=== PATIENT | female | born 1970 | race Caucasian/White ===

== ENCOUNTER 2023-05-31 08:32 | Outpatient (RCR) | payer BC, SELFPAY | END 2023-05-31 23:59 | disposition home or self-care (01) | LOC: ROT 08:32 | PROVIDERS: ATTENDING PHYSICIAN Orthopaedic Surgery | DX: M79.642 Pain in left hand (principal); Z73.6 Limitation of activities due to disability | CPT/HCPCS: 97140; 97166; 97535 ==

== ENCOUNTER 2023-06-05 12:02 | Outpatient (RCR) | payer BC, SELFPAY | END 2023-06-05 23:59 | disposition home or self-care (01) | LOC: RPT 12:02 | PROVIDERS: ATTENDING PHYSICIAN Radiology Radiation Oncology; PRIMARYCARE PHYSICIAN Family Medicine | DX: I97.2 Postmastectomy lymphedema syndrome (principal); C50.412 Malignant neoplasm of upper-outer quadrant of left female breast; Z73.6 Limitation of activities due to disability | CPT/HCPCS: 97110; 97140 ==

== ENCOUNTER 2023-06-14 12:05 | Outpatient (RCR) | payer BC, SELFPAY | END 2023-06-14 23:59 | disposition home or self-care (01) | LOC: ROT 12:05 | PROVIDERS: ATTENDING PHYSICIAN Orthopaedic Surgery | DX: M79.642 Pain in left hand (principal); Z73.6 Limitation of activities due to disability | CPT/HCPCS: 97530 ==

== ENCOUNTER 2023-07-03 12:05 | Outpatient (RCR) | payer BC, SELFPAY | END 2023-07-03 23:59 | disposition home or self-care (01) | LOC: RPT 12:05 | PROVIDERS: ATTENDING PHYSICIAN Radiology Radiation Oncology; PRIMARYCARE PHYSICIAN Family Medicine | DX: I97.2 Postmastectomy lymphedema syndrome (principal); Z73.6 Limitation of activities due to disability; C50.412 Malignant neoplasm of upper-outer quadrant of left female breast; M79.642 Pain in left hand | CPT/HCPCS: 97110; 97140 ==

== ENCOUNTER 2023-08-02 12:13 | Outpatient (RCR) | payer BC, SELFPAY | END 2023-08-02 23:59 | disposition home or self-care (01) | LOC: RPT 12:13 | PROVIDERS: ATTENDING PHYSICIAN Radiology Radiation Oncology; PRIMARYCARE PHYSICIAN Family Medicine | DX: C50.412 Malignant neoplasm of upper-outer quadrant of left female breast (principal); Z73.6 Limitation of activities due to disability | CPT/HCPCS: 97140 ==

== ENCOUNTER 2023-09-04 15:01 | Outpatient (RCR) | payer BC, SELFPAY | END 2023-09-05 14:22 | disposition home or self-care (01) | LOC: RPT 15:01 | PROVIDERS: ATTENDING PHYSICIAN Radiology Radiation Oncology; PRIMARYCARE PHYSICIAN Family Medicine | DX: I89.0 Lymphedema, not elsewhere classified (principal); C50.412 Malignant neoplasm of upper-outer quadrant of left female breast | CPT/HCPCS: 97140 ==

== ENCOUNTER 2023-09-20 14:23 | Outpatient (RCR) | payer BC, SELFPAY | END 2023-09-20 23:59 | disposition home or self-care (01) | LOC: RPT 14:23 | PROVIDERS: ATTENDING PHYSICIAN Radiology Radiation Oncology; PRIMARYCARE PHYSICIAN Family Medicine | DX: I89.0 Lymphedema, not elsewhere classified (principal); C50.412 Malignant neoplasm of upper-outer quadrant of left female breast; Z73.6 Limitation of activities due to disability | CPT/HCPCS: 97140 ==

== ENCOUNTER 2023-10-30 12:04 | Outpatient (RCR) | payer BC, SELFPAY | END 2023-10-30 23:59 | disposition home or self-care (01) | LOC: RPT 12:04 | PROVIDERS: ATTENDING PHYSICIAN Radiology Radiation Oncology; PRIMARYCARE PHYSICIAN Family Medicine | DX: I97.2 Postmastectomy lymphedema syndrome (principal); C50.412 Malignant neoplasm of upper-outer quadrant of left female breast; Z73.6 Limitation of activities due to disability | CPT/HCPCS: 97140 ==

== ENCOUNTER → 2023-12-26 15:49 | Outpatient (REF) | payer BC, SELFPAY | LOC: RCS 15:49 | PROVIDERS: ATTENDING PHYSICIAN Internal Medicine Cardiovascular Disease; FAMILY PHYSICIAN Family Medicine | DX: Z85.3 Personal history of malignant neoplasm of breast (principal); Z92.3 Personal history of irradiation | CPT/HCPCS: 93306; 93356 ==

== ENCOUNTER 2024-01-01 13:59 | Outpatient (RCR) | payer BC, SELFPAY | END 2024-01-01 23:59 | disposition home or self-care (01) | LOC: RPT 13:59 | PROVIDERS: ATTENDING PHYSICIAN Radiology Radiation Oncology; PRIMARYCARE PHYSICIAN Family Medicine | DX: I97.2 Postmastectomy lymphedema syndrome (principal); C50.412 Malignant neoplasm of upper-outer quadrant of left female breast; Z73.6 Limitation of activities due to disability | CPT/HCPCS: 97110; 97140 ==

== ENCOUNTER 2024-01-23 14:07 | Outpatient (RCR) | payer BC, SELFPAY | END 2024-01-23 23:59 | disposition home or self-care (01) | LOC: RPT 14:07 | PROVIDERS: ATTENDING PHYSICIAN Radiology Radiation Oncology; PRIMARYCARE PHYSICIAN Family Medicine | DX: I97.2 Postmastectomy lymphedema syndrome (principal); C50.412 Malignant neoplasm of upper-outer quadrant of left female breast; Z73.6 Limitation of activities due to disability | CPT/HCPCS: 97110; 97140 ==

== ENCOUNTER 2024-02-09 15:02 | Outpatient (RCR) | payer BC, SELFPAY | END 2024-02-09 23:59 | disposition home or self-care (01) | LOC: RPT 15:02 | PROVIDERS: ATTENDING PHYSICIAN Radiology Radiation Oncology; PRIMARYCARE PHYSICIAN Family Medicine | DX: I97.2 Postmastectomy lymphedema syndrome (principal); C50.412 Malignant neoplasm of upper-outer quadrant of left female breast; Z73.6 Limitation of activities due to disability | CPT/HCPCS: 97110; 97140; 97530 ==

== ENCOUNTER 2024-06-06 16:59 | Outpatient (RCR) | payer BC, SELFPAY | END 2024-06-06 23:59 | disposition home or self-care (01) | LOC: RPT 16:59 | PROVIDERS: ATTENDING PHYSICIAN Radiology Radiation Oncology; PRIMARYCARE PHYSICIAN Family Medicine | DX: I97.2 Postmastectomy lymphedema syndrome (principal); C50.412 Malignant neoplasm of upper-outer quadrant of left female breast; Z73.6 Limitation of activities due to disability | CPT/HCPCS: 97110; 97140 ==

== ENCOUNTER 2024-06-20 16:26 | Emergency (ER) | payer BC, SELFPAY ==
[2024-06-20 16:38] VITALS: BP 108/69
[2024-06-20 17:21] LABS: COVID-19 Antigen Negative (Negative)
[2024-06-20 17:22] LABS: ALT (SGPT) 57 U/L (0-35); AST (SGOT) 51 U/L (14-36); Albumin 4.5 g/dl (3.5-5.0); Alkaline Phosphatase 107 U/L (38-126); Blood Urea Nitrogen 10 mg/dl (7-17); Calcium 8.8 mg/dl (8.4-10.2); Carbon Dioxide 23 mmol/L (22-30); Chloride 101 mmol/L (98-107); Glucose 96 mg/dl (70-99); Potassium 4.1 mmol/L (3.5-5.1); Sodium 135 mmol/L (135-145); Total Bilirubin 1.1 mg/dl (0.2-1.3); Total Protein 6.7 g/dl (6.3-8.2); eGFR > 60.00
[2024-06-20 17:28] VITALS: BMI 32.4
--- NOTE | 2024-06-20 17:48 | ED.GENMED ---
History of Present Illness
General
Chief Complaint: Cold/Flu/URI Symptoms
Time Seen by Provider: 06/20/24 17:48
History of Present Illness
History of Present Illness:
TIME OF INITIAL ENCOUNTER: 5:55 PM
HPI: Patient presents due to fevers, cough, congestion and is on Verzenio due to breast cancer. She also reports lower extremity myalgias. She did not take anything for the fever. Her primary oncologist is at [place]. She has been having chills.
EXAM:
GENERAL: The patient appears somewhat weak but is mentating well
HEENT: Moist oral mucosa
CARDIOVASCULAR: No murmurs, borderline tachycardic heart rate, regular rhythm, No chest wall tenderness
PULMONARY: No respiratory distress, breath sounds are clear and equal
ABDOMEN: Soft with no peritoneal signs, no tenderness
NEUROLOGIC: Good strength all extremities, no coordination deficits
PSYCHIATRIC: Appropriate mental status, normal insight and judgement
EXTREMITIES: Nontender, no edema, moves all extremities equally
SKIN: No rash, no lesions
NUMBER AND COMPLEXITY OF PROBLEMS ADDRESSED AT THE ENCOUNTER
� Chronic conditions affecting care: Breast cancer, had neutropenic fever in 2022, thyroid disease
� Acute Exacerbation and/or Progression of Chronic Illness: This is an acute problem
� Differential Diagnosis includes: Viral syndrome, flu, COVID, sepsis, pneumonia, neutropenic fever
AMOUNT AND/OR COMPLEXITY OF DATA TO BE REVIEWED AND ANALYZED
� I performed an independent evaluation of and my interpretation is:
EKG:
CT:
X-rays: Chest x-ray by my read shows no acute abnormality
Laboratory Studies: Flu positive, COVID-negative, creatinine 1.1, AST and ALT in the 50s, white count 2.0, 68% neutrophils
Other:
� Review of other/old records: I reviewed records. The patient was admitted here nearly 2 years ago with a neutropenic fever
� Clinical information was obtained by an independent historian: None needed
� Prescriptions/Medications Considered but not given:
� Further testing considered but not performed:
RISK OF COMPLICATIONS AND/OR MORBIDITY OR MORTALITY OF PATIENT MANAGEMENT
� Social determinants of health affecting care: Lives at home
� Discussion with other providers:
� Escalation of care including admission/observation vs risk of discharge considered: Patient is febrile and tachycardic likely related to fever/flu. However she is borderline neutropenic therefore will obtain blood cultures and
lactic and give a liter of IV fluids. Also give Tylenol.
ANY OTHER UPDATES:
I added on lactic acid and this was normal. Mild leukopenia noted and she is borderline neutropenic but ANC is still above the thousand at 1300. Blood cultures obtained as she is on Verzenio. Given the lower extremity pains, CK obtained and was
normal.
9:05 PM: I reassessed patient. She overall feels improved. Will start Tamiflu.
Past History
Past History
ED Past Medical History: Asthma, Cancer and Hypothyroidism
ED Past Surgical History: Gynecological and Other
Social History
Tobacco: Non-smoker
Alcohol: None
Drug: None
Personal:
Living: with family
Phy Exam
Physical Exam
Physical Exam:
See HPI
Sepsis
Sepsis Screening
Sepsis Assessment: Sepsis Ruled Out
Sepsis Screen
Sepsis Screen: Sepsis Ruled Out
Date: 06/20/24
Time: 21:09
Course
Orders/Labs/Results
Orders:
Orders
06/20/24 16:43
Chest [CR Chest - 2 Views ] Urgent
Comment:
Reason For Exam: cough
06/20/24 16:48
COVID-19 Antigen Urgent
Source: Nasal Swab
Complete Blood Count/With Diff Urgent
Comprehensive Metabolic Panel Urgent
Creatine Phosphokinase Urgent
Comment: ADDON
Influenza A+B Rapid Molecular Urgent
JEAN CARLOS Source: Nasal Swab
Specimen Description:
06/20/24 18:05
0.9% Sodium Chloride 1000 ml [Nss] 1,000 ml IV BOLUS
Acetaminophen [Tylenol] 1,000 mg PO NOW STA
06/20/24 18:06
Add On- LAB Urgent
Tests Added?: CK
06/20/24 18:15
Lactic Acid Q4H
Comment: CANCEL 2nd LACTIC ACID IF 1st LACTIC ACID IS LESS THAN 2
Blood Culture Q30M
JEAN CARLOS Source: Blood/Venous
Specimen Description:
Blood Culture Q30M
JEAN CARLOS Source: Blood/Venous
Specimen Description:
06/20/24 20:48
Oseltamivir Phosphate [Tamiflu] 75 mg PO NOW STA
Abnormal Lab Results
06/20/24
16:48
WBC 2.0 L* 10^3/uL
(4.8-10.8)
RBC 3.28 L 10^6/uL
(4.20-5.40)
Hgb 11.9 L g/dL
(12.0-16.0)
Hct 33.3 L %
(37.0-47.0)
MCV 101.5 H fL
(81.0-99.0)
MCH 36.3 H pg
(27.0-31.0)
Absolute Neuts (auto) 1.3 L 10^3/uL
(1.4-6.5)
Absolute Lymphs (auto) 0.4 L 10^3/uL
(1.2-3.4)
Monocytes % 10.8 H %
(1.7-9.3)
Creatinine 1.1 H mg/dL
(0.6-1.0)
AST 51 H U/L
(14-36)
ALT 57 H U/L
(0-35)
06/20/24 16:48
06/20/24 16:48
Vital Signs
Initial and Last Documented VS:
Initial Vital Signs
Temp Pulse Resp BP Pulse Ox
38.2 C H 124 18 108/69 98
06/20/24 16:38 06/20/24 16:38 06/20/24 16:38 06/20/24 16:38 06/20/24 16:38
Last Documented Vital Signs
Temp Pulse Resp BP Pulse Ox
38.2 C H 124 18 108/69 98
06/20/24 16:38 06/20/24 16:38 06/20/24 16:38 06/20/24 16:38 06/20/24 18:30
*Critical Care Note
Total Time (30-74mins, 75-104mins- exclusive of procedures): Not Applicable
ED Attending Note
-
Portions of this chart may have been created with voice recognition software.� Occasional wrong word or��sound alike� substitutions may have occurred due to the inherent limitations of voice recognition software.
Discharge Plan
Departure
Patient Disposition: Home (Routine Discharge)
Date of Disposition: 06/20/24
Time of Disposition: 21:02
Patient with high blood pressure during this ER visit?: No
Discharge Problem:
Influenza A
Prescriptions:
New
oseltamivir [Tamiflu] 75 mg capsule
75 mg PO BID Qty: 10 0RF
No Action
levothyroxine [Synthroid] 137 mcg tablet
137 mcg PO DAILY AT 0700
famotidine 20 mg Tablet
20 mg PO HS
metoprolol succinate 25 mg tablet extended release 24 hr
12.5 mg PO HS
albuterol sulfate 90 mcg/actuation HFA aerosol inhaler
2 puff INHALATION R Q4 PRN (Reason: sob/wheezing)
calcitriol 0.25 mcg capsule
0.5 mcg PO DAILY
oxymetazoline 0.05 % Edison,Non-Aerosol
1 spray INTRANASAL HS
melatonin 5 mg Tablet
5 mg PO HS
Dulera 100-5 mcg/actuation HFA aerosol inhaler
2 puff INHALATION R BID
calcium citrate
625 mg PO BID
anastrozole 1 mg Tablet
1 mg PO DAILY
ascorbic acid (vitamin C) [Vitamin C] 1,000 mg Tablet
500 mg PO DAILY
Lupron Depot (3 month) 11.25 mg Syringe Kit
11.25 mg IM [id number]
indapamide 2.5 mg Tablet
2.5 mg PO DAILY
ciprofloxacin HCl [Cipro] 500 mg Tablet
500 mg PO BID
sulfamethoxazole-trimethoprim [Bactrim DS] 800-160 mg Tablet
1 tab PO DAILY
vancomycin 125 mg Capsule
125 mg PO BID
zinc gluconate 50 mg Tablet
50 mg PO DAILY
magnesium 250 mg Tablet
650 mg PO DAILY
loratadine 10 mg Tablet
10 mg PO DAILY
Probiotic 3 billion cell Capsule
3,000 mmu cells PO DAILY
Referrals:
Nirmala Butterfield DO [Family Provider] -
Interventions
Interventions:
*Risk Screen - Suicide Last Done: 06/20/24 16:38
*General Assessment Last Done: 06/20/24 16:38
*Neglect/Abuse Screening Last Done: 06/20/24 16:38
ED- Fall Risk Assessment Last Done: 06/20/24 17:28
*ED COVID-19 Vaccine History Last Done: 06/20/24 16:38
ED- Pulmonary Assessment Last Done: 06/20/24 17:28
Discharge Date and Time
Print Language: JAPANESE
[2024-06-20 17:50] LABS: % Basophils 0.5 % (0-2); % Lymphocytes 20.5 % (20.5-51.1); % Monocytes 10.8 % (1.7-9.3); % Neutrophils 68.2 % (42.2-75.2); Absolute Lymphocytes 0.4 10^3/uL (1.2-3.4); Absolute Monocytes 0.2 10^3/uL (0.1-0.6); Absolute Neutrophils 1.3 10^3/uL (1.4-6.5); Hematocrit 33.3 % (37.0-47.0); Hemoglobin 11.9 g/dL (12.0-16.0); Mean Corp Hgb Conc. 35.7 g/dL (33.0-37.0); Mean Corpuscular Hgb 36.3 pg (27.0-31.0); Mean Corpuscular Volume 101.5 fL (81.0-99.0); Mean Platelet Volume 9.6 fL (7.4-10.4); Nucleated Red Blood Cells % 0 %; Platelet Count 141 10^3/uL (130-400); Red Blood Cell Count 3.28 10^6/uL (4.20-5.40); Red Cell Dist. Width 12.5 % (11.5-14.5)
[2024-06-20] MEDS: NSS 1000 IV (18:14)
[2024-06-20] MEDS: TYLENOL 1000 MG PO (18:20)
[2024-06-20 18:35] LABS: Creatine Phosphokinase 74 U/L (30-135)
[2024-06-20] MEDS: TAMIFLU 75 MG PO (20:57)
[2024-06-20 22:58] VITALS: BP 101/51
== END 2024-06-20 23:17 | disposition home or self-care (01) ==
LOC: EMR 16:26
PROVIDERS: Emergency Medicine; EMERGENCY PHYSICIAN Emergency Medicine; FAMILY PHYSICIAN Family Medicine
DX: J10.1 Influenza due to other identified influenza virus with other respiratory manifestations (principal); Z11.52 Encounter for screening for COVID-19
CPT/HCPCS: 99284; 96360; 71046; 80053; 82550; 83605; 85025; 87040; 87502; 87811

== ENCOUNTER 2024-06-28 14:05 | Outpatient (RCR) | payer BC, SELFPAY | END 2024-06-28 23:59 | disposition home or self-care (01) | LOC: RPT 14:05 | PROVIDERS: ATTENDING PHYSICIAN Radiology Radiation Oncology; PRIMARYCARE PHYSICIAN Family Medicine | DX: C50.412 Malignant neoplasm of upper-outer quadrant of left female breast (principal); Z73.6 Limitation of activities due to disability; I97.2 Postmastectomy lymphedema syndrome | CPT/HCPCS: 97110; 97140 ==

== ENCOUNTER 2024-10-03 12:08 | Outpatient (RCR) | payer BC, SELFPAY | END 2024-10-03 23:59 | disposition home or self-care (01) | LOC: RPT 12:08 | PROVIDERS: ATTENDING PHYSICIAN Radiology Radiation Oncology; FAMILY PHYSICIAN Family Medicine | DX: M25.512 Pain in left shoulder (principal); Z73.6 Limitation of activities due to disability | CPT/HCPCS: 97110; 97140; 97161 ==

== ENCOUNTER 2024-10-25 12:06 | Outpatient (RCR) | payer BC, SELFPAY | END 2024-10-25 23:59 | disposition home or self-care (01) | LOC: RPT 12:06 | PROVIDERS: ATTENDING PHYSICIAN Radiology Radiation Oncology; FAMILY PHYSICIAN Family Medicine | DX: M25.512 Pain in left shoulder (principal); Z73.6 Limitation of activities due to disability | CPT/HCPCS: 97110; 97140 ==

== ENCOUNTER 2024-11-27 15:21 | Outpatient (RCR) | payer BC, SELFPAY | END 2024-11-27 23:59 | disposition home or self-care (01) | LOC: RPT 15:21 | PROVIDERS: ATTENDING PHYSICIAN Radiology Radiation Oncology; FAMILY PHYSICIAN Family Medicine | DX: M25.512 Pain in left shoulder (principal); Z73.6 Limitation of activities due to disability | CPT/HCPCS: 97110; 97140; 97530 ==

== ENCOUNTER 2025-01-02 15:04 | Outpatient (RCR) | payer BC, SELFPAY | END 2025-01-02 23:59 | disposition home or self-care (01) | LOC: RPT 15:04 | PROVIDERS: ATTENDING PHYSICIAN Radiology Radiation Oncology; FAMILY PHYSICIAN Family Medicine | DX: M25.512 Pain in left shoulder (principal); Z73.6 Limitation of activities due to disability; R20.0 Anesthesia of skin; Z85.3 Personal history of malignant neoplasm of breast | CPT/HCPCS: 97110; 97140 ==

== ENCOUNTER 2025-01-22 12:04 | Outpatient (RCR) | payer BC, SELFPAY | END 2025-01-22 23:59 | disposition home or self-care (01) | LOC: RPT 12:04 | PROVIDERS: ATTENDING PHYSICIAN Radiology Radiation Oncology; FAMILY PHYSICIAN Family Medicine | DX: M25.512 Pain in left shoulder (principal); Z73.6 Limitation of activities due to disability; R20.0 Anesthesia of skin; Z85.3 Personal history of malignant neoplasm of breast | CPT/HCPCS: 97110; 97140 ==

== ENCOUNTER 2025-02-12 10:17 | Outpatient (RCR) | payer BC, SELFPAY | END 2025-02-12 23:59 | disposition home or self-care (01) | LOC: RPT 10:17 | PROVIDERS: ATTENDING PHYSICIAN Radiology Radiation Oncology; FAMILY PHYSICIAN Family Medicine | DX: M25.512 Pain in left shoulder (principal); Z73.6 Limitation of activities due to disability; R20.0 Anesthesia of skin; Z85.3 Personal history of malignant neoplasm of breast | CPT/HCPCS: 97140 ==

== ENCOUNTER → 2025-02-28 12:24 | Outpatient (REF) | payer BC, SELFPAY | LOC: HWRAD 12:24 | PROVIDERS: ATTENDING PHYSICIAN Nurse Practitioner; FAMILY PHYSICIAN Family Medicine | DX: N39.0 Urinary tract infection, site not specified (principal) | CPT/HCPCS: 76770 ==

== ENCOUNTER 2025-03-27 17:02 | Outpatient (RCR) | payer BC, SELFPAY | END 2025-03-27 23:59 | disposition home or self-care (01) | LOC: RPT 17:02 | PROVIDERS: ATTENDING PHYSICIAN Radiology Radiation Oncology; FAMILY PHYSICIAN Family Medicine | DX: M25.512 Pain in left shoulder (principal); Z73.6 Limitation of activities due to disability; R20.0 Anesthesia of skin; Z85.3 Personal history of malignant neoplasm of breast | CPT/HCPCS: 97110; 97140 ==

== ENCOUNTER 2025-04-24 18:03 | Outpatient (RCR) | payer BC, SELFPAY | END 2025-04-24 23:59 | disposition home or self-care (01) | LOC: RPT 18:03 | PROVIDERS: ATTENDING PHYSICIAN Radiology Radiation Oncology; FAMILY PHYSICIAN Family Medicine | DX: M25.512 Pain in left shoulder (principal); Z73.6 Limitation of activities due to disability; R20.0 Anesthesia of skin; Z85.3 Personal history of malignant neoplasm of breast | CPT/HCPCS: 97110; 97140 ==